=== PATIENT | female | born 1985 | race Caucasian/White ===

== ENCOUNTER 2016-03-27 10:41 | Outpatient (RCR) | payer OTHER ==
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
[~2016-03-27 10:41] MED LIST: AC500T PO; ACHYD1T PO; ALPR0.5T PO; CALC-656 PO; CARI250T; CEPH500C PO; DCS100C PO; FLUO20CA42 PO; HYDR-3720 PO; HYDR-3820 PO; HYDR-707 PO; HYDR1TAB8; IBP800T PO; LISI1TAB2; LISI1TAB6; MELO7.5T; MULT-116 PO; NAPR-243; NITR-65 PO; NITR100C3 PO; ONDA8TAB13 PO; PHEN-640 PO; PREN1TAB14 PO; SPRINTEC PO; ZLP10T PO
[2016-04-01 20:42] LABS: STONE RISK AMMONIUM 12 mEq/24hr (14-62); STONE RISK BRUSHITE 1.38 (< 2.00); STONE RISK CA OXALATE 0.47 (< 2.00); STONE RISK CALCIUM 65 mg/day (< 250); STONE RISK CITRATE 929 mg/day (> 320); STONE RISK CREATININE 1329 mg/day (600-1800); STONE RISK MAGNESIUM 91 mg/day (> 60); STONE RISK OXALATE 22 mg/day (< 45); STONE RISK PH 7.5 (5.5-7.0); STONE RISK PHOSPHOROUS 684 mg/day (< 1100); STONE RISK POTASSIUM 31 mEq/24hr (19-135); STONE RISK SODIUM 194 mEq/24hr (< 200); STONE RISK SODIUM URATES 5.35 (< 2.00); STONE RISK STRUVITE 22.62 (< 75.00); STONE RISK SULFITE 8 mmol/day (< 30); STONE RISK TOTAL VOLUME 1.11 L/day (> 2.00); STONE RISK URIC ACID 418 mg/day (< 700); STONE RISK URIC ACID SAT 0.06 (< 2.00)
[2016-05-20] MEDS ORDERED: CARI350T PO (12:21)
[2016-05-20] MEDS ORDERED: TRAM50TA2 PO (12:21)
[2016-05-27] MEDS ORDERED: HYDR-3816 PO (11:29)
== END 2016-06-23 | disposition home or self-care (01) ==
LOC: LAB 10:41
PROVIDERS: ATTEND Urology
DX: N20.9 Urinary calculus, unspecified (principal)
CPT/HCPCS: 36415; 82140; 82340; 82507; 82570; 83735; 83945; 83986; 84105; 84133; 84300; 84392; 84560

== ENCOUNTER → 2016-06-08 | Outpatient (CLI) | payer OTHER ==
[~2016-06-08] VITALS: Ht 162.6 cm; Wt 96.2 kg
[~2016-06-08] MED LIST changes: +CARI350T PO; +HYDR-3816 PO; +NS IV 1000 ML 1,000 ML IV ONE; +ONDANSETRON 4 MG/2 ML (SDV) Z0FRAN IV PRN; +TRAM50TA2 PO
--- OUTSIDE RECORDS SUMMARY | 2016-06-08 10:51 | XMS REPORT | Continuity of Care Document ---
Author Author [facility] Organization [facility] Address Unknown Phone Unavailable Care Team Providers Care Traditional Chinese Herbalist Name Role Phone KRIS ALEJANDRE MD PCP Insurance Providers Payer Name Policy Number Subscriber Name Relationship [employer] [facility] [id number] Carol Veras 16 Self / Same As Patient Advance Directives Directive Response Recorded Date/Time Advance Directives No 02/20/16 10:14am Health Care Power of Aboriginal Education Teacher No 02/20/16 10:14am Organ Donor Yes 02/20/16 [...] - 99.5) 02/16/2016 11:10pm Temperature (Calculated Celsius) 37.08766 degrees C (36.4 - 37.5) 02/16/2016 11:10pm [...] 4.00 inches 02/20/2016 10:14am Height (Calculated Centimeters) 162.827413 cm 02/20/2016 10:14am Weight (Pounds) 203 pounds 02/20/2016 10:14am Weight (Ounces) 0.0 oz 02/20/2016 10:14am Weight (Calculated Grams) 82226.252 gm 02/20/2016 10:14am Weight (Calculated Kilograms) 92.576227 kilograms 02/20/2016 10:14am Calculated BMI 33.78 02/20/2016 10:14am Capillary Refill Capillary Refill Less Than 3 Seconds 02/03/2016 9:43pm Results Laboratory Results Test Name Result Units Flags Reference Collection Date/Time Result Date/ Time Comments Urine Color YELLOW 02/03/2016 10:15pm 02/03/2016 10:48pm Urine Clarity CLEAR 02/03/2016 10:15pm 02/03/2016 10:48pm Urine pH 7 5-9 02/03/2016 10:15pm 02/03/2016 10:48pm Urine Specific [place] 1.005 * 1.016-1.022 02/03/2016 10:15pm 2015 10:48pm [...] Discharge/Depart Date Attending Provider Departed Clinic [facility] 02/20/16 5:33am 02/20/16 10: 26am JOEY ANTONIO MD Departed Emergency Room [facility] 02/16/16 9:13pm 02/15 11:10pm DONNIE QUEVEDO MD Registered Clinic [facility] 02/13/16 1:05pm JOEY ANTONIO MD Departed Emergency Room [facility] 02/03/16 9:20pm 02/03 12:22am ROGER GARY
[2016-06-08 10:52] VITALS: BP 127/83
[2016-06-08 11:21] LABS: BASOPHILS # (AUTO) 0.1 10^3/uL (0.0-0.1); BASOPHILS % (AUTO) 1 % (0-10); EOSINOPHILS # (AUTO) 0.5 10^3/uL (0.0-0.3); EOSINOPHILS % (AUTO) 6 % (0-10); LYMPHOCYTES # (AUTO) 1.6 X 10^3 (1.0-4.0); LYMPHOCYTES % (AUTO) 17 % (12-44); MEAN CORPUSCULAR HEMOGLOBIN 27 PG (25-34); MEAN CORPUSCULAR HGB CONC 33 G/DL (32-36); MEAN CORPUSCULAR VOLUME 82 FL (80-99); MEAN PLATELET VOLUME 9.2 FL (7.4-10.4); MONOCYTES # (AUTO) 0.8 X 10^3 (0.0-1.0); MONOCYTES % (AUTO) 9 % (0-12); NEUTROPHILS % (AUTO) 67 % (42-75); PLATELET COUNT 369 10^3/uL (130-400); RED BLOOD COUNT 4.38 10^6/uL (4.35-5.85); RED CELL DISTRIBUTION WIDTH 13.3 % (10.0-14.5); WHITE BLOOD COUNT 8.9 10^3/uL (4.3-11.0)
[2016-06-08 11:39] LABS: ALANINE AMINOTRANSFERASE 15 U/L (0-55); ALBUMIN 3.9 G/DL (3.2-4.5); ANION GAP 8 MMOL/L (5-14); ASPARTATE AMINO TRANSFERASE 13 U/L (5-34); BILIRUBIN,TOTAL 0.4 MG/DL (0.1-1.0); BLOOD UREA NITROGEN 10 MG/DL (7-18); BUN/CREATININE RATIO 11; CALCIUM 8.8 MG/DL (8.5-10.1); CARBON DIOXIDE 23 MMOL/L (21-32); CHLORIDE 105 MMOL/L (98-107); CREATININE SERUM 0.93 MG/DL (0.60-1.30); GFR ESTIMATED > 60; GLUCOSE 88 MG/DL (70-105); POTASSIUM 3.2 MMOL/L (3.6-5.0); SODIUM 136 MMOL/L (135-145); TOTAL PROTEIN 6.7 G/DL (6.4-8.2)
== END ==
LOC: 4THo 10:46
PROVIDERS: ATTEND Nurse Practitioner Family
DX: E86.0 Dehydration (principal); R19.7 Diarrhea, unspecified
CPT/HCPCS: 36415; 80053; 85025; 96360

== ENCOUNTER 2017-01-18 17:10 | Emergency (ER) | payer OTHER ==
[~2017-01-18] VITALS: Ht 162.6 cm; Wt 96.2 kg
[~2017-01-18 17:10] MED LIST changes: -MULT-116 PO; +MULT-324 PO; -NS IV 1000 ML 1,000 ML IV ONE; -ONDANSETRON 4 MG/2 ML (SDV) Z0FRAN IV PRN
--- NOTE | 2017-01-18 17:22 | ED Integumentary General ---
General Chief Complaint: Bite-Animal/Human/Insect Stated Complaint: L ARM SPIDER BITE Source: patient Exam Limitations: no limitations History of Present Illness Time seen by provider: 17:20 Initial Comments To ER with reports of a bite to the left arm. States that she was walking out of work when she felt a sharp sudden stinging/burning sensation to the left forearm. She was wearing long sleeves. She immediately pulled up her sleeve and some sort of insect flew out of the sleeve. Unsure whether this was a spider that seems to fly because of the force with which she pulled up her sleeve or if this was a wasp. This was about 30 minutes ago. She had instant redness and burning at the site. Timing/Duration: just prior to arrival Severity: moderate Allergies and Home Medications Allergies Coded Allergies: meperidine (Verified Allergy, Unknown, 06/08/16) Home Medications Alprazolam 0.5 Mg Tablet, 0.5 MG PO HS, (Reported) Atorvastatin Calcium 10 Mg Tablet, (Reported) Carisoprodol 350 Mg Tablet, 350 MG PO PRN, (Reported) Carisoprodol 250 Mg Tablet, (Reported) Cyanocobalamin 1,000 Mcg/Ml Inj, (Reported) Fluoxetine HCl 20 Mg Capsule, 20 MG PO DAILY, (Reported) Hydrocodone/Acetaminophen 1 Each Tablet, 1 EACH PO Q4H, #30 MAY TAKE ONE TABLET BY MOUTH EVERY 4 HRS NEEDED FOR PAIN. DO NOT EXCEED 3000 MG TYLENOL(ACETAMINOPHEN)IN A 24 HR PERIOD(NO MORE THAN 9 TABS IN 24 HRS) Prescribed by: RADHA WHITE on 05/27/16 1129 Levothyroxine Sodium 25 Mcg Tablet, (Reported) Tramadol HCl 50 Mg Tablet, 50 MG PO PRN, (Reported) [Sprintec ] , 1 TAB PO DAILY, (Reported) Constitutional: see HPI EENTM: see HPI Respiratory: no symptoms reported Genitourinary: no symptoms reported Musculoskeletal: no symptoms reported Skin: see HPI Psychiatric/Neurological: No Symptoms Reported Endocrine: No Symptoms Reported Past Rptijdz-Xacevb-Benysx Hx Patient Social History Recent Foreign Travel: No Contact w/Someone Who Travel: No Recent Hopitalizations: Yes Immunizations Up To Date Tetanus Booster (TDap): Less than 5yrs Date of Influenza Vaccine: Feb 10, 2016 Seasonal Allergies Seasonal Allergies: No Surgeries Surgeries: Appendectomy, Gallbladder, Hysterectomy, Orthopedic, Tonsillectomy Reproductive System Hx Reproductive Disorders: No Sexually Transmitted Disease: No HIV/AIDS: No DECISION ANALYST History: Hysterectomy Genitourinary Genitourinary Disorders: Kidney Stones Gastrointestinal Gastrointestinal Disorders: Gastroesophageal Reflux, Hiatal Hernia HEENT Loss of Vision: Bilateral Hearing Impairment: Denies Psychosocial Behavioral Health Disorders: Sleep Difficulties, Depression Blood Transfusions Adverse Reaction to a Blood Tr: No Family Medical History Significant Family History: No Pertinent Family Hx Physical Exam Vital Signs Vital Sign - Last 12Hours 01/18/17 17:17 Temp 98.6 Pulse 78 Resp 18 B/P (MAP) 140/99 Pulse Ox 98 Capillary Refill : General Appearance: WD/WN, no apparent distress HEENT: PERRL/EOMI, normal ENT inspection Neck: non-tender, full range of motion Respiratory: normal breath sounds, no respiratory distress, no accessory muscle use Gastrointestinal: normal bowel sounds, soft Neurologic/Psychiatric: alert, normal mood/affect, oriented x 3 Skin: normal color, warm/dry, other (5 cm circular area of erythema and with central punctum to the volar aspect left mid forearm) Skin Problem Location: upper extremities Skin Problem Character: erythema Progress/Results/Core Measures Results/Orders My Orders Orders - RAINER MARIE APRN Saline Lock/Iv-Start (01/18/17 17:19) Dexamethasone Pf Injection (Decadron Pf (01/18/17 17:30) Diphenhydramine Injection (Benadryl Inje (01/18/17 17:30) Ketorolac Injection (Toradol Injection) (01/18/17 17:30) Vital Signs/I&O Vital Sign - Last 12Hours 01/18/17 17:17 Temp 98.6 Pulse 78 Resp 18 B/P (MAP) 140/99 Pulse Ox 98 Departure Impression Impression: Primary Impression: Insect sting Disposition: 01 HOME, SELF-CARE Condition: Improved Departure-Patient Inst. Decision time for Depature: 17:31 Referrals: KRIS ALEJANDRE MD (PCP/Family) Primary Care Physician Patient Instructions: Insect Bites and Stings (DC) Add. Discharge Instructions: 1. Benadryl as needed for any itching 2. Tylenol and Motrin for any pain 3. Ice pack for 20-30 minutes every hour for the next 2-3 hours 3. Return to ER for any concerns All discharge instructions reviewed with patient and/or family. Voiced understanding. RAINER MARIE APRN Jan 18, 2017 17:22
[2017-01-18] MEDS ORDERED: CARI250T7 (17:26)
[2017-01-18] MEDS ORDERED: ATOR10TA66 (17:26)
[2017-01-18] MEDS ORDERED: CNC1KV (17:26)
[2017-01-18] MEDS ORDERED: LEVO25TA5 (17:26)
[2017-01-18] MEDS ORDERED: diphenhydrAMINE 50 MG/ML INJ (BENADRYL) IM ONE (17:30)
[2017-01-18] MEDS ORDERED: KETOROLAC 60 MG/2 ML VIAL IM ONE (17:30)
[2017-01-18] MEDS ORDERED: DEXAMETHASONE PF 10 MG/ML (DECADRON) VIAL IM ONE (17:30)
[2017-01-18 17:39] VITALS: BP 132/87
== END 2017-01-18 17:39 | disposition home or self-care (01) ==
LOC: EDUNIT# 17:10 → ER 17:11
DX: T63.301A Toxic effect of unspecified spider venom, accidental (unintentional), initial encounter (principal); K21.9 Gastro-esophageal reflux disease without esophagitis; F32.9 Major depressive disorder, single episode, unspecified; G47.9 Sleep disorder, unspecified; Z90.49 Acquired absence of other specified parts of digestive tract; Z90.89 Acquired absence of other organs; Z90.710 Acquired absence of both cervix and uterus; Z87.442 Personal history of urinary calculi
CPT/HCPCS: 99283

== ENCOUNTER → 2017-03-02 | Outpatient (CLI) | payer OTHER ==
[~2017-03-02] MED LIST changes: +ATOR10TA66; +CARI250T7; +CNC1KV; +LEVO25TA5
[2017-03-02 09:58] LABS: KETONES,URINE NEGATIVE (NEGATIVE); LEUKOCYTE ESTERASE ,URINE NEGATIVE (NEGATIVE); NITRITE,URINE POSITIVE (NEGATIVE); PH,URINE 6.5 (5-9); PROTEIN,URINE NEGATIVE (NEGATIVE); UROBILINOGEN,URINE 1 MG/DL (NORMAL)
[2017-03-02 09:59] LABS: BASOPHILS % (AUTO) 1 % (0-10); EOSINOPHILS # (AUTO) 0.3 10^3/uL (0.0-0.3); EOSINOPHILS % (AUTO) 5 % (0-10); LYMPHOCYTES # (AUTO) 2.1 X 10^3 (1.0-4.0); LYMPHOCYTES % (AUTO) 40 % (12-44); MEAN CORPUSCULAR HEMOGLOBIN 29 PG (25-34); MEAN CORPUSCULAR HGB CONC 32 G/DL (32-36); MEAN CORPUSCULAR VOLUME 89 FL (80-99); MEAN PLATELET VOLUME 9.2 FL (7.4-10.4); MONOCYTES # (AUTO) 0.5 X 10^3 (0.0-1.0); MONOCYTES % (AUTO) 10 % (0-12); NEUTROPHILS # (AUTO) 2.3 X 10^3 (1.8-7.8); NEUTROPHILS % (AUTO) 44 % (42-75); PLATELET COUNT 309 10^3/uL (130-400); RED BLOOD COUNT 4.04 10^6/uL (4.35-5.85); RED CELL DISTRIBUTION WIDTH 13.1 % (10.0-14.5); WHITE BLOOD COUNT 5.2 10^3/uL (4.3-11.0)
[2017-03-02 10:11] LABS: BAND NEUTROPHILS 0 %; BASOPHILS % (MANUAL) 0 %; EOSINOPHILS % (MANUAL) 2 %; LYMPHOCYTES % (MANUAL) 40 %; NEUTROPHILS % (MANUAL) 51 %
[2017-03-02 10:25] LABS: ALANINE AMINOTRANSFERASE 11 U/L (0-55); ALBUMIN 3.7 GM/DL (3.2-4.5); ANION GAP 5 MMOL/L (5-14); ASPARTATE AMINO TRANSFERASE 18 U/L (5-34); BILIRUBIN,TOTAL 0.2 MG/DL (0.1-1.0); BLOOD UREA NITROGEN 11 MG/DL (7-18); BUN/CREATININE RATIO 13; CARBON DIOXIDE 28 MMOL/L (21-32); CHLORIDE 108 MMOL/L (98-107); CHOLESTEROL 218 MG/DL (< 200); CREATININE SERUM 0.82 MG/DL (0.60-1.30); DIRECT LDL 130 MG/DL (1-129); GFR ESTIMATED > 60; GLUCOSE 86 MG/DL (70-105); POTASSIUM 4.1 MMOL/L (3.6-5.0); SODIUM 141 MMOL/L (135-145); TOTAL PROTEIN 6.8 GM/DL (6.4-8.2); TRIGLYCERIDES 87 MG/DL (<150); VLDL CHOLESTEROL 17 MG/DL (5-40)
[2017-03-02 10:34] LABS: BILIRUBIN,URINE 1+ (NEGATIVE); SQUAMOUS EPITHELIAL CELL,UR 0-2 /HPF
[2017-03-02 10:47] LABS: THYROID STIMULATING HORMONE 2.42 UIU/ML (0.35-4.94)
== END ==
LOC: RAD 09:40
PROVIDERS: ATTEND Nurse Practitioner Family
DX: K59.00 Constipation, unspecified (principal); R30.0 Dysuria; E03.9 Hypothyroidism, unspecified; D51.8 Other vitamin B12 deficiency anemias; E78.2 Mixed hyperlipidemia; D50.0 Iron deficiency anemia secondary to blood loss (chronic)
CPT/HCPCS: 36415; 74020; 80053; 80061; 81000; 82607; 82728; 83540; 84439; 84443; 85007; 85027; 87088

== ENCOUNTER → 2017-03-04 | Outpatient (CLI) | payer OTHER ==
--- NOTE | 2017-03-04 15:11 | Diagnostic Imaging Report ---
PROCEDURE: CT abdomen and pelvis without contrast. TECHNIQUE: Multiple contiguous axial images were obtained through the abdomen and pelvis without the use of intravenous contrast. INDICATION: Abdominal pain x 2 weeks, increasing severity over the past 3 days. CORRELATION STUDY: 02/16/2016. FINDINGS: LOWER THORAX: Unremarkable. LIVER: Unenhanced liver appearing unremarkable. GALLBLADDER: Absent with clips in the fossa. SPLEEN: Unremarkable. PANCREAS: Unremarkable. ADRENAL GLANDS: Unremarkable. KIDNEYS: There are a few punctate calcifications in the kidneys, compatible with nonobstructing stones. The ureters are incompletely traced but there does not appear to be suggestion of calcification along the expected course or evidence for obstructive uropathy. ABDOMINAL AORTA: Unremarkable in its contour. A few scattered mesenteric lymph nodes. GASTROINTESTINAL TRACT: A gastric lap band is again demonstrated. There has been a very slight change in the orientation but it does appear to be likely within normal limits. Akins position is relatively stable. The stomach is somewhat distended with retained gastric contents. No evidence for gastrointestinal obstruction. Moderate severity of fecal retention throughout the colon. Findings compatible with prior appendectomy with clips at the cecum. No evidence for free air. No significant pelvic or abdominal fluid. URINARY BLADDER: Decompressed and therefore not well visualized. REPRODUCTIVE: Absent. OSSEOUS STRUCTURES: Asymmetric disc space narrowing at the L5-S1 level with endplate sclerosis. Additional degenerative disc disease is present. IMPRESSION: 1. Very slight asymmetry in the orientation of the gastric lap band but it does remain within normal limits and may be owing to differences in imaging technique. Slight wall thickening in the lower esophagus with a small hiatal hernia present. This may be accentuated by the band. 2. Small nonobstructing renal stones. 3. Otherwise, relatively unremarkable noncontrast imaging of the abdomen and pelvis. Dictated by: Dictated on workstation # [id number]
== END ==
LOC: RAD 13:26
PROVIDERS: ATTEND Nurse Practitioner Family
DX: N20.0 Calculus of kidney (principal); Z98.84 Bariatric surgery status
CPT/HCPCS: 74176

== ENCOUNTER → 2017-09-06 | Outpatient (CLI) | payer OTHER ==
[~2017-09-06] MED LIST changes: +HYDR-34 PO; -HYDR-3816 PO
[2017-09-06 09:31] LABS: BASOPHILS # (AUTO) 0.1 10^3/uL (0.0-0.1); BASOPHILS % (AUTO) 1 % (0-10); EOSINOPHILS # (AUTO) 0.3 10^3/uL (0.0-0.3); EOSINOPHILS % (AUTO) 5 % (0-10); HEMATOCRIT 37 % (35-52); HEMOGLOBIN 12.6 G/DL (11.5-16.0); LYMPHOCYTES % (AUTO) 37 % (12-44); MEAN CORPUSCULAR HEMOGLOBIN 30 PG (25-34); MEAN CORPUSCULAR HGB CONC 34 G/DL (32-36); MEAN CORPUSCULAR VOLUME 88 FL (80-99); MEAN PLATELET VOLUME 9.3 FL (7.4-10.4); MONOCYTES # (AUTO) 0.5 X 10^3 (0.0-1.0); MONOCYTES % (AUTO) 8 % (0-12); NEUTROPHILS # (AUTO) 2.6 X 10^3 (1.8-7.8); NEUTROPHILS % (AUTO) 49 % (42-75); PLATELET COUNT 318 10^3/uL (130-400); RED BLOOD COUNT 4.25 10^6/uL (4.35-5.85); RED CELL DISTRIBUTION WIDTH 13.1 % (10.0-14.5); WHITE BLOOD COUNT 5.4 10^3/uL (4.3-11.0)
[2017-09-06 09:56] LABS: ALANINE AMINOTRANSFERASE 15 U/L (0-55); ALBUMIN 3.8 GM/DL (3.2-4.5); ALKALINE PHOSPHATASE 48 U/L (40-136); BILIRUBIN,TOTAL 0.4 MG/DL (0.1-1.0); BUN/CREATININE RATIO 20; CALCIUM 9.2 MG/DL (8.5-10.1); CARBON DIOXIDE 27 MMOL/L (21-32); CHLORIDE 105 MMOL/L (98-107); CREATININE SERUM 0.83 MG/DL (0.60-1.30); GFR ESTIMATED > 60; GLUCOSE 76 MG/DL (70-105); POTASSIUM 3.9 MMOL/L (3.6-5.0); SODIUM 141 MMOL/L (135-145); TOTAL PROTEIN 6.5 GM/DL (6.4-8.2)
[2017-09-06 10:17] LABS: FREE T4 (FREE THYROXINE) 0.97 NG/DL (0.70-1.48)
== END ==
LOC: LAB 09:11
PROVIDERS: ATTEND Nurse Practitioner Family
DX: E03.9 Hypothyroidism, unspecified (principal); D50.0 Iron deficiency anemia secondary to blood loss (chronic)
CPT/HCPCS: 36415; 80053; 84439; 84443; 85025

== ENCOUNTER → 2017-11-09 | Outpatient (CLI) | payer OTHER ==
[2017-11-09 08:31] LABS: FREE T4 (FREE THYROXINE) 1.01 NG/DL (0.70-1.48)
== END ==
LOC: LAB 07:42
PROVIDERS: ATTEND Nurse Practitioner Family
DX: E03.9 Hypothyroidism, unspecified (principal); R63.5 Abnormal weight gain
CPT/HCPCS: 36415; 84439; 84443

== ENCOUNTER → 2017-11-15 | Outpatient (CLI) | payer OTHER ==
[~2017-11-15] MED LIST changes: +BARIUM SUSPENSION 105% (LIQUID POLIBAR PLUS) 240 ML/DOSE PO ONE; +BARIUM SUSPENSION 60% (LIQUID EZ PAQUE) 240 ML DOSE PO ONE
--- NOTE | 2017-11-15 12:09 | Diagnostic Imaging Report ---
INDICATION: Status post LAP-BAND placement 8 years ago. The patient reports increasing weight gain. TECHNIQUE: Patient ingested effervescent crystals as well as thin and thick barium and imaging of the esophagus, stomach and proximal small bowel was performed. FINDINGS: Preliminary radiograph does show normal orientation of the LAP-BAND in the left upper quadrant. The reservoir is in the right abdomen. Patient ingested barium without difficulty. Esophagus has smooth contour. No mass or stricture seen. There is focal narrowing through the LAP-BAND but barium does pass freely through the LAP-BAND. No obstruction or significant delay is identified. There is no extravasation of contrast. Stomach has normal configuration. There is prompt emptying into the small bowel. The duodenal bulb is without deformity. IMPRESSION: Unremarkable upper GI, with patient status post lap band surgery. No definite complicating feature is identified. Dictated by: Dictated on workstation # [id number]
== END ==
LOC: RAD 10:51
PROVIDERS: ATTEND Surgery
DX: K21.9 Gastro-esophageal reflux disease without esophagitis (principal); R63.5 Abnormal weight gain; Z98.84 Bariatric surgery status
CPT/HCPCS: 74241

== ENCOUNTER → 2018-09-12 | Outpatient (CLI) | payer OTHER ==
[~2018-09-12] MED LIST changes: -BARIUM SUSPENSION 105% (LIQUID POLIBAR PLUS) 240 ML/DOSE PO ONE; -BARIUM SUSPENSION 60% (LIQUID EZ PAQUE) 240 ML DOSE PO ONE; -MULT-324 PO; +MULT-834 PO
[2018-09-12 08:15] LABS: BASOPHILS # (AUTO) 0.1 10^3/uL (0.0-0.1); BASOPHILS % (AUTO) 1 % (0-10); EOSINOPHILS # (AUTO) 0.6 10^3/uL (0.0-0.3); EOSINOPHILS % (AUTO) 9 % (0-10); HEMATOCRIT 35 % (35-52); HEMOGLOBIN 11.7 G/DL (11.5-16.0); LYMPHOCYTES # (AUTO) 2.5 X 10^3 (1.0-4.0); LYMPHOCYTES % (AUTO) 38 % (12-44); MEAN CORPUSCULAR HEMOGLOBIN 29 PG (25-34); MEAN CORPUSCULAR HGB CONC 33 G/DL (32-36); MEAN CORPUSCULAR VOLUME 87 FL (80-99); MEAN PLATELET VOLUME 9.2 FL (7.4-10.4); MONOCYTES # (AUTO) 0.7 X 10^3 (0.0-1.0); MONOCYTES % (AUTO) 11 % (0-12); NEUTROPHILS # (AUTO) 2.8 X 10^3 (1.8-7.8); NEUTROPHILS % (AUTO) 42 % (42-75); PLATELET COUNT 329 10^3/uL (130-400); RED CELL DISTRIBUTION WIDTH 13.9 % (10.0-14.5); WHITE BLOOD COUNT 6.7 10^3/uL (4.3-11.0)
[2018-09-12 08:48] LABS: ALANINE AMINOTRANSFERASE 21 U/L (0-55); ALBUMIN 3.8 GM/DL (3.2-4.5); ALKALINE PHOSPHATASE 66 U/L (40-136); BILIRUBIN,TOTAL 0.2 MG/DL (0.1-1.0); BUN/CREATININE RATIO 20; CALCIUM 9.4 MG/DL (8.5-10.1); CARBON DIOXIDE 25 MMOL/L (21-32); CHLORIDE 109 MMOL/L (98-107); CHOLESTEROL 173 MG/DL (< 200); GFR ESTIMATED > 60; GLUCOSE 86 MG/DL (70-105); HDL CHOLESTEROL 56 MG/DL (40-60); POTASSIUM 4.2 MMOL/L (3.6-5.0); SODIUM 141 MMOL/L (135-145); TOTAL PROTEIN 6.1 GM/DL (6.4-8.2); TRIGLYCERIDES 92 MG/DL (<150); VLDL CHOLESTEROL 18 MG/DL (5-40)
== END ==
LOC: LAB 08:01
PROVIDERS: ATTEND Nurse Practitioner Family
DX: Z00.00 Encounter for general adult medical examination without abnormal findings (principal)
CPT/HCPCS: 36415; 80053; 80061; 84443; 85025

== ENCOUNTER → 2019-02-21 | Outpatient (CLI) | payer OTHER ==
--- NOTE | 2019-02-21 16:09 | Diagnostic Imaging Report ---
INDICATION: Right-sided abdominal pain. Hematuria. COMPARISON: 03/02/2017. FINDINGS: Two frontal radiographic views of the abdomen were obtained. Postsurgical changes of previous Lap-Band are identified. No unexpected extraosseous calcifications or radiopaque foreign bodies are seen. Small bowel loops are nondistended. Included portions of the lung bases are clear. Osseous structures show no gross acute abnormalities. IMPRESSION: 1. Nonobstructed small bowel gas pattern. Dictated by: Dictated on workstation # [id number]
== END ==
LOC: RAD 15:01
PROVIDERS: ATTEND Nurse Practitioner Family
DX: R31.9 Hematuria, unspecified (principal); R10.9 Unspecified abdominal pain; Z98.84 Bariatric surgery status
CPT/HCPCS: 74018

== ENCOUNTER → 2019-04-05 | Outpatient (CLI) | payer OTHER ==
--- NOTE | 2019-04-05 09:09 | Diagnostic Imaging Report ---
INDICATION: Screening. TECHNIQUE: The current study was also evaluated with a Computer Aided Detection (CAD) system. 3D Tomographic imaging was also performed. 3D tomosynthesis was performed and reviewed. COMPARISON: No prior examination is available for comparison. FINDINGS: There are scattered fibroglandular densities bilaterally. There is no dominant mass, spiculated lesion, or suspicious calcification identified. The skin, nipples, and axillae are unremarkable. IMPRESSION: Negative. ACR BI-RADS Category 1: Negative. Result letter will be mailed to the patient. Note: At least 10% of breast cancer is not imaged by mammography. Dictated by: Dictated on workstation # [id number]
== END ==
LOC: RAD 07:21
PROVIDERS: ATTEND Obstetrics & Gynecology
DX: Z12.31 Encounter for screening mammogram for malignant neoplasm of breast (principal)
CPT/HCPCS: 77067

== ENCOUNTER → 2020-03-12 | Outpatient (CLI) | payer OTHER ==
[~2020-03-12] MED LIST changes: -HYDR-3820 PO; -TRAM50TA2 PO; +TRM50T PO
== END ==
LOC: LABNPT 07:52
PROVIDERS: ATTEND Family Medicine
DX: Z01.89 Encounter for other specified special examinations (principal)

== ENCOUNTER → 2020-06-03 | Outpatient (CLI) | payer OTHER ==
[2020-06-03 14:13] LABS: BASOPHILS # (AUTO) 0.1 10^3/uL (0.0-0.1); BASOPHILS % (AUTO) 1 % (0-10); EOSINOPHILS # (AUTO) 0.5 10^3/uL (0.0-0.3); EOSINOPHILS % (AUTO) 8 % (0-10); HEMATOCRIT 34 % (35-52); HEMOGLOBIN 10.5 g/dL (11.5-16.0); LYMPHOCYTES # (AUTO) 2.8 10^3/uL (1.0-4.0); LYMPHOCYTES % (AUTO) 43 % (12-44); MEAN CORPUSCULAR HEMOGLOBIN 25 pg (25-34); MEAN CORPUSCULAR HGB CONC 31 g/dL (32-36); MEAN CORPUSCULAR VOLUME 82 fL (80-99); MEAN PLATELET VOLUME 9.2 fL (9.0-12.2); MONOCYTES # (AUTO) 0.4 10^3/uL (0.0-1.0); MONOCYTES % (AUTO) 7 % (0-12); NEUTROPHILS # (AUTO) 2.6 10^3/uL (1.8-7.8); NEUTROPHILS % (AUTO) 41 % (42-75); PLATELET COUNT 328 10^3/uL (130-400); WHITE BLOOD COUNT 6.4 10^3/uL (4.3-11.0)
[2020-06-03 14:40] LABS: ALANINE AMINOTRANSFERASE 12 U/L (0-55); ALBUMIN 3.6 GM/DL (3.2-4.5); ALKALINE PHOSPHATASE 61 U/L (40-136); BILIRUBIN,TOTAL 0.2 MG/DL (0.1-1.0); BUN/CREATININE RATIO 14; CALCIUM 8.7 MG/DL (8.5-10.1); CARBON DIOXIDE 27 MMOL/L (21-32); CHLORIDE 107 MMOL/L (98-107); CHOLESTEROL 246 MG/DL (< 200); CREATININE SERUM 0.76 MG/DL (0.60-1.30); GFR ESTIMATED > 60; GLUCOSE 86 MG/DL (70-105); HDL CHOLESTEROL 75 MG/DL (40-60); POTASSIUM 3.9 MMOL/L (3.6-5.0); SODIUM 140 MMOL/L (135-145); TOTAL PROTEIN 6.6 GM/DL (6.4-8.2); TRIGLYCERIDES 67 MG/DL (<150); VLDL CHOLESTEROL 13 MG/DL (5-40)
== END ==
LOC: LAB 13:36
PROVIDERS: ATTEND Nurse Practitioner Family
DX: Z00.00 Encounter for general adult medical examination without abnormal findings (principal); Z13.220 Encounter for screening for lipoid disorders
CPT/HCPCS: 36415; 80053; 80061; 82728; 83540; 84443; 85025

== ENCOUNTER → 2020-08-02 | Outpatient (CLI) | payer OTHER ==
[2020-08-02 09:47] LABS: BASOPHILS # (AUTO) 0.1 10^3/uL (0.0-0.1); BASOPHILS % (AUTO) 1 % (0-10); EOSINOPHILS # (AUTO) 0.4 10^3/uL (0.0-0.3); EOSINOPHILS % (AUTO) 5 % (0-10); HEMATOCRIT 38 % (35-52); HEMOGLOBIN 11.8 g/dL (11.5-16.0); LYMPHOCYTES % (AUTO) 39 % (12-44); MEAN CORPUSCULAR HEMOGLOBIN 27 pg (25-34); MEAN CORPUSCULAR HGB CONC 31 g/dL (32-36); MEAN CORPUSCULAR VOLUME 85 fL (80-99); MEAN PLATELET VOLUME 9.5 fL (9.0-12.2); MONOCYTES # (AUTO) 0.7 10^3/uL (0.0-1.0); MONOCYTES % (AUTO) 8 % (0-12); NEUTROPHILS # (AUTO) 3.7 10^3/uL (1.8-7.8); NEUTROPHILS % (AUTO) 47 % (42-75); PLATELET COUNT 349 10^3/uL (130-400); WHITE BLOOD COUNT 7.8 10^3/uL (4.3-11.0)
[2020-08-02 10:11] LABS: ALANINE AMINOTRANSFERASE 14 U/L (0-55); ALBUMIN 3.7 GM/DL (3.2-4.5); ALKALINE PHOSPHATASE 59 U/L (40-136); BILIRUBIN,TOTAL 0.2 MG/DL (0.1-1.0); BUN/CREATININE RATIO 16; CARBON DIOXIDE 26 MMOL/L (21-32); CHLORIDE 108 MMOL/L (98-107); CREATININE SERUM 0.82 MG/DL (0.60-1.30); GFR ESTIMATED > 60; GLUCOSE 71 MG/DL (70-105); POTASSIUM 3.7 MMOL/L (3.6-5.0); SODIUM 143 MMOL/L (135-145); TOTAL PROTEIN 6.5 GM/DL (6.4-8.2)
== END ==
LOC: LAB 09:11
PROVIDERS: ATTEND Nurse Practitioner Family
DX: D50.9 Iron deficiency anemia, unspecified (principal); D51.9 Vitamin B12 deficiency anemia, unspecified
CPT/HCPCS: 36415; 80053; 82607; 83540; 83550; 85025

== ENCOUNTER → 2020-10-15 | Outpatient (CLI) | payer OTHER | LOC: ONC 14:54 | PROVIDERS: ATTEND Nurse Practitioner Adult Health | DX: D64.9 Anemia, unspecified (principal); Z80.3 Family history of malignant neoplasm of breast | CPT/HCPCS: 99213 ==